=== PATIENT | female | born 1980 | race Caucasian/White ===

== ENCOUNTER 2024-01-08 09:02 | Emergency (ER) | payer SELFPAY ==
[2024-01-08 09:07] VITALS: BP 139/96; PULSE 92; O2SAT 100
[2024-01-08 09:17] VITALS: BP 139/96; PULSE 91; RESP 16; TEMP 36.6; O2SAT 100; BMI 29.9
[2024-01-08] MEDS: AMOXICILLIN/CLAVULANATE POTASSIUM 875/125MG TABLET 1 EACH PO (09:50)
[2024-01-08] MEDS: IBUPROFEN 400 MG TABLET 800 MG PO (09:50)
[2024-01-08 09:54] VITALS: BP 120/87; PULSE 90; RESP 18; TEMP 36.6
--- NOTE | 2024-01-08 11:22 | ED_ITS ---
Discharge Plan Disposition Patient Disposition: Home, Self-Care Condition: Good Prescriptions Prescriptions: New amoxicillin-pot clavulanate 875-125 mg tablet 1 tab PO BID Qty: 20 0RF ibuprofen 800 mg tablet 800 mg PO Q8H PRN (Reason: pain) Qty: 20 0RF Referrals Follow up/Referrals: Jes Corbett APRN [Primary Care Provider] - See instructions Activity Restrictions/Add. Instructions Additional Instructions/Restrictions: You were evaluated in the emergency department today. At this time, it is important that you see a dentist right away. We are prescribing you Augmentin as well as naproxen to take at home. Please complete the full course of antibiotic as prescribed. Return to the emergency department for new or worsening symptoms, such as significant worsening in pain and swelling, difficulty swallowing, difficulty breathing, or fevers. Clinical Impressions Clinical Impression: Dental abscess Stand Alone Forms Stand Alone Forms: Work/School Release Instructions Patient Instructions: DI for Tooth Decay, DI for Dental Pain Discharge ED Provider: Barbra Rosario General Adult HPI General Chief complaint: Dental/Oral Stated complaint: tooth pain Time Seen by Provider: 01/08/24 09:11 Mode of Arrival: Ambulatory Source of Information: Patient Limitations: No Limitations Description of Symptoms (Recalled from ER Triage Doc. by RN): pt states she broke off an upper L tooth a few months ago. yesterday she developed pain in said tooth. pt woke up this am with the L side of her face edematous from under her L eye down to her jaw. pt took tylenol around 0630. pt states her pain is throbbing in nature and a 4/10. pt states she is not worried about the pain, she just needs an antibiotic. pts other teeth appear decayed and she is missing many teeth. History of Present Illness HPI narrative: This patient is a 43-year-old female with a history of poor dentition presenting to the emergency department for evaluation with concern for dental pain and facial swelling. Patient reports that she broke off an upper right tooth a few months ago and has been in close follow-up with a dentist but was waiting for time off work to get dressed. She states that this morning, she woke up with right-sided facial swelling. She has had no visual disturbance, trismus, drooling, dysphagia, stridor, shortness of breath, or other concerns. She is also had no fevers, chills, chest pain, abdominal pain, nausea, vomiting, or other concerns. She states she only came in because she did not have antibiotics at home. Related Data Previous Rx's Medication Instructions Recorded amoxicillin 875 mg-potassium 1 tab PO BID #20 tabs 01/08/24 clavulanate 125 mg tablet ibuprofen 800 mg tablet 800 mg PO Q8H PRN pain #20 tabs 01/08/24 Allergies Allergy/AdvReac Type Severity Reaction Status Date / Time ethyl alcohol AdvReac Mild Rash Verified 01/08/24 09:25 [facility] Disclaimer: The information contained in this section may have been updated after the patient was seen, as this information can be updated by other users. Social History Smoking Status: Current every day smoker alcohol intake: never current occupational status: employed Travel in the last 8 weeks: None ROS Obtained: Yes All systems reviewed & no additional complaints except as documented Physical Exam General General appearance: alert and in no apparent distress Head Head exam: atraumatic and other (Right-sided facial swelling) Eye Eye exam: Present normal appearance, PERRL and EOMI ENT ENT exam: Present mucous membranes moist, normal external ear exam and other (Dental caries and dental fractures with no obvious intraoral abscess. Patient does have right-sided facial swelling. No trismus or drooling.) Neck Neck exam: Present normal inspection, full ROM and trachea midline; Absent tenderness Chest Chest inspection: Present normal inspection and symmetric chest wall rise; Absent tenderness Respiratory Respiratory exam: Present normal lung sounds bilaterally; Absent respiratory distress, wheezes, stridor or accessory muscle use Cardiovascular Cardiovascular exam: Present regular rate and normal rhythm Abdominal Exam Abdominal exam: Present soft; Absent distention, tenderness or guarding Extremities Exam Extremities exam: Present normal inspection, full ROM and normal capillary refill; Absent tenderness or edema Back Exam Back exam: Present normal inspection and full ROM; Absent tenderness Neurological Exam Neurological exam: Present alert, oriented X3, CN II-XII intact and normal gait; Absent motor sensory deficit Psychiatric Psychiatric exam: Present normal affect and normal mood Skin Skin exam: Present warm and dry Medical Decision Making Medical Records Medical records reviewed: Yes I reviewed the patient's medical records. David Inquiry Pt receiving controlled substance: No Vital Signs: 01/08/24 09:07 01/08/24 09:17 01/08/24 09:54 Temperature 98 F 98 F Temperature Source Oral Pulse Rate 92 H 90 Pulse Rate [Left] 91 H Respiratory Rate 16 18 Blood Pressure 139/96 H 120/87 Blood Pressure [Right Arm] 139/96 H Blood Pressure Mean [Right Arm] 110 Blood Pressure Source [Right Arm] Automatic Cuff Blood Pressure Position [Right Arm] Sitting 02 Sat by Pulse Oximetry 100 100 Oxygen Delivery Method Room Air Lab Data Lab results reviewed: Yes I reviewed the patient's lab results. Orders (Tests/Meds): ED MEDICATIONS Discontinued Medications Generic Name Dose Route Start Last Admin Trade Name Freq PRN Reason Stop Dose Admin Amoxicillin/Clavulanate Potassium 1 each 01/08/24 09:47 01/08/24 09:50 Amoxicillin/Clavulanate Potassium 875/125mg Tablet PO 01/08/24 09:48 1 each ONCE ONE Administration Ibuprofen 800 mg 01/08/24 09:47 01/08/24 09:50 Ibuprofen 400 Mg Tablet PO 01/08/24 09:48 800 mg ONCE ONE Administration Medical Decision Narrative: In summary, this patient is a 43-year-old female presenting to the Emergency Department for evaluation of facial swelling and dental pain. Differential diagnoses considered include but are not limited to dental abscess, facial abscess, cellulitis. Ruling out the most morbid conditions drove assessment. On exam, the patient is well-appearing. She is resting comfortably in no acute distress with no trismus, drooling, stridor, or other systemic symptoms. Vitals are normal on cardiac telemetry. I told the patient that I would advise obtaining CT scan of her face to rule out deep abscess/deep space infection. She declined after shared decision-making and stated that she is only here for antibiotic and will follow-up closely with her dentist. She does not feel it is necessary at this time. She was given prescription for Augmentin as well as ibuprofen for pain. She was given instructions to complete the full course of antibiotics and follow-up with a dentist right away. She was given strict retu rn precautions. Patient was discharged in stable condition after all questions were answered. Critical Care Critical Care Time Critical Care Time: No
== END 2024-01-08 09:55 | disposition home or self-care (01) ==
PROVIDERS: Emergency Provider Emergency Medicine; PCP Nurse Practitioner
DX: K04.7 Periapical abscess without sinus (principal); R22.0 Localized swelling, mass and lump, head; F17.210 Nicotine dependence, cigarettes, uncomplicated
CPT/HCPCS: 99283

== ENCOUNTER 2024-10-10 19:39 | Emergency (ER) | payer MEDICAID, SELFPAY ==
[2024-10-10 19:46] VITALS: BP 184/111; PULSE 98; RESP 18; TEMP 36.8; O2SAT 98; BMI 31.4
--- NOTE | 2024-10-10 19:47 | HMH.EDGENADL ---
Discharge Plan Disposition Patient Disposition: Home, Self-Care Condition: Good Prescriptions Prescriptions: No Action amoxicillin-pot clavulanate 875-125 mg tablet 1 tab PO BID Qty: 20 0RF ibuprofen 800 mg tablet 800 mg PO Q8H PRN (Reason: pain) Qty: 20 0RF Referrals Follow up/Referrals: Michelle Corbett PA [Primary Care Provider] - See instructions Nayana Martinez DPM [Staff Physician] - See instructions Activity Restrictions/Add. Instructions Additional Instructions/Restrictions: Recommend Tylenol alternating with Motrin along with rest ice compression elevation. I have referred you to the foot and ankle doctor. You may do weightbearing as tolerated in your Ortho boot until you have your appointment. Please call in the morning to make. If you have any continued new or worsening signs or symptoms follow-up with your PCP or return to the ER as needed. Clinical Impressions Clinical Impression: Right ankle sprain Qualifiers: Encounter type: initial encounter Involved ligament of ankle: unspecified ligament Qualified Code(s): S93.401A - Sprain of unspecified ligament of right ankle, initial encounter Print Language Print Language: Korean Discharge ED Provider: Esvin Stephens General Adult HPI <JENA Darling - Last Filed: 10/10/24 20:59> General Chief complaint: Extremity Injury, Lower Stated complaint: A/O fell and twisted right ankle and leg Time Seen by Provider: 10/10/24 19:41 History of Present Illness HPI narrative: Patient presents for right ankle injury. Patient was walking out of her house and her shoelace got caught on a stick causing her to roll her ankle. She did not fall but she felt a pop and pain. She denies any loss of motor or sensory or any other injury. Related Data Previous Rx's ?Medication ?Instructions ?Recorded amoxicillin 875 mg-potassium 1 tab PO BID #20 tabs 01/08/24 clavulanate 125 mg tablet ibuprofen 800 mg tablet 800 mg PO Q8H PRN pain #20 tabs 01/08/24 Allergies Allergy/AdvReac Type Severity Reaction Status Date / Time ethyl alcohol AdvReac Mild Rash Verified 01/08/24 09:25 PF[facility] <JENA Darling - Last Filed: 10/10/24 20:59> PFS Disclaimer: The information contained in this section may have been updated after the patient was seen, as this information can be updated by other users. Social History (Updated 01/08/24 @ 11:25 by Barbra Rosario DO) Smoking Status: Never smoker alcohol intake: never current occupational status: employed Travel in the last 8 weeks: None Have you lived/traveled outside [place] in past 30 days?: No Contact w/someone who lives/traveled outside [place] past 30 days?: No Exposure to someone with infectious disease in past 14 days?: No Do you have a fever (greater than 100.4 F or 38 C)?: No Have you tested positive for COVID-19: No Exposed to someone with COVID-19 in past 14 days?: No Do you have a sore throat?: No Do you have a cough?: No Do you have any weakness?: No Do you have any diarrhea?: No Are you experiencing any unusual bleeding?: No Do you have any muscle aches/pain?: No Do you have any abdominal pain?: No Are you experiencing loss of taste or smell?: No <JENA Dalring - Last Filed: 10/10/24 20:59> ROS Obtained: Yes Systems reviewed as appropriate & no additional complaints except as documented Physical Exam <JENA Darling - Last Filed: 10/10/24 20:59> General General appearance: alert and in no apparent distress Respiratory Respiratory exam: Present normal lung sounds bilaterally Cardiovascular Cardiovascular exam: Present regular rate Neurological Exam Neurological exam: Present alert and oriented X3 Medical Decision Making <JENA Darling - Last Filed: 10/10/24 20:59> Medical Records Screening: Per USPSTF and CDC recommendations, given the prevalence of disease in our region, it is our hospital?s policy to screen for HIV and viral Hepatitis for all patients aged 18 and over and those with ongoing risk factors. David Inquiry Pt receiving controlled substance: No Vital Signs: 10/10/24 19:46 10/10/24 20:44 Temperature 98.3 F 97.9 F Temperature Source Oral Oral Pulse Rate 81 Pulse Rate [Right] 98 H Respiratory Rate 18 18 Blood Pressure 132/78 Blood Pressure [Right Arm] 184/111 H Blood Pressure Mean [Right Arm] 135 Blood Pressure Source Automatic Cuff Blood Pressure Source [Right Arm] Automatic Cuff Blood Pressure Position Sitting Blood Pressure Position [Right Arm] Sitting 02 Sat by Pulse Oximetry 98 Oxygen Delivery Method Room Air Room Air Orders (Tests/Meds): ED MEDICATIONS Discontinued Medications Generic Name Dose Route Start Last Admin Trade Name Alissa PRN Reason Stop Dose Admin Acetaminophen 1,000 mg 10/10/24 19:54 10/10/24 20:09 Acetaminophen 500mg Tab PO 10/10/24 19:55 1,000 mg ONCE ONE Administration Ibuprofen 800 mg 10/10/24 19:54 10/10/24 20:09 Ibuprofen 400 Mg Tablet PO 10/10/24 19:55 800 mg ONCE ONE Administration ORDERS Category Date Time Status Ankle XR -Right minimum 3 Views [XR ankle RT min 3V] Exams 10/10/24 19:54 Completed Stat Medical Decision Narrative: In summary patient is a 44-year-old female who presents to the emergency department for evaluation of right ankle injury. Patient is hemodynamically stable upon arrival, afebrile. Zickel exam is remarkable for swelling at the lateral malleolus and ecchymosis however no palpable bony deformity. Patient is neurovascular intact distally. Patient has positive pulses has good flexion extension.. Differential diagnosis includes ankle sprain versus fracture. Initial workup will be conducted with plain film x-rays. Initial interventions include Tylenol and ibuprofen. Initial workup reviewed by me my informal interpretation shows no acute fracture prior to radiology read. Please see final read for formal report. Upon repeat evaluation patient has difficulty bearing weight despite initial intervention. Given this I offered the patient crutches Dany wrap or an Ortho boot and she is elected via patient directed decision making and Ortho boot and follow-up with podiatry. Thus patient is appropriate for discharge with rest ice compression elevation instructions along with recommendations continue taking Tylenol Motrin and referral to podiatry. <Esvin Stephens MD - Last Filed: 10/10/24 21:09> Vital Signs: 10/10/24 19:46 10/10/24 20:44 Temperature 98.3 F 97.9 F Temperature Source Oral Oral Pulse Rate 81 Pulse Rate [Right] 98 H Respiratory Rate 18 18 Blood Pressure 132/78 Blood Pressure [Right Arm] 184/111 H Blood Pressure Mean [Right Arm] 135 Blood Pressure Source Automatic Cuff Blood Pressure Source [Right Arm] Automatic Cuff Blood Pressure Position Sitting Blood Pressure Position [Right Arm] Sitting 02 Sat by Pulse Oximetry 98 Oxygen Delivery Method Room Air Room Air Orders (Tests/Meds): ED MEDICATIONS Discontinued Medications Generic Name Dose Route Start Last Admin Trade Name Alissa PRN Reason Stop Dose Admin Acetaminophen 1,000 mg 10/10/24 19:54 10/10/24 20:09 Acetaminophen 500mg Tab PO 10/10/24 19:55 1,000 mg ONCE ONE Administration Ibuprofen 800 mg 10/10/24 19:54 10/10/24 20:09 Ibuprofen 400 Mg Tablet PO 10/10/24 19:55 800 mg ONCE ONE Administration ORDERS Category Date Time Status Ankle XR -Right minimum 3 Views [XR ankle RT min 3V] Exams 10/10/24 19:54 Completed Stat Medical Decision Narrative: In summary patient is a 44-year-old female who presents to the emergency department for evaluation of right ankle injury. Patient is hemodynamically stable upon arrival, afebrile. Zickel exam is remarkable for swelling at the lateral malleolus and ecchymosis however no palpable bony deformity. Patient is neurovascular intact distally. Patient has positive pulses has good flexion extension.. Differential diagnosis includes ankle sprain versus fracture. Initial workup will be conducted with plain film x-rays. Initial interventions include Tylenol and ibuprofen. Initial workup reviewed by me my informal interpretation shows no acute fracture prior to radiology read. Please see final read for formal report. Upon repeat evaluation patient has difficulty bearing weight despite initial intervention. Given this I offered the patient crutches Dany wrap or an Ortho boot and she is elected via patient directed decision making and Ortho boot and follow-up with podiatry. Thus patient is appropriate for discharge with rest ice compression elevation instructions along with recommendations continue taking Tylenol Motrin and referral to podiatry. LUCY attestation I was consulted by the LUCY, and we discussed the complexity of problems being addressed. I approved the treatment and management plan for this patient's care in the emergency department, thus performing a substantial portion of the medical decision making. Examined the patient at bedside and independently interpreted her x-ray imaging revealing of no acute osseous pathology. Consistent with ankle sprain. Ambulatory and appropriate for discharge at this time. Esvin Stephens MD Critical Care <JENA Darling - Last Filed: 10/10/24 20:59> Critical Care Time Critical Care Time: No
--- NOTE | 2024-10-10 19:54 | XR_ITS ---
PROCEDURE INFORMATION: Exam: XR Right Ankle Exam date and time: 10/10/2024 7:57 PM Age: 44 years old Clinical indication: Pain; Ankle; Right; Additional info: Rolled right ankle TECHNIQUE: Imaging protocol: Radiologic exam of the right ankle. Views: 3 or more views. COMPARISON: No relevant prior studies available. FINDINGS: Bones/joints: Normal. Soft tissues: Normal. IMPRESSION: No acute findings.
[2024-10-10] MEDS: ACETAMINOPHEN 500MG TAB 1000 MG PO (20:09)
[2024-10-10] MEDS: IBUPROFEN 400 MG TABLET 800 MG PO (20:09)
[2024-10-10 20:44] VITALS: BP 132/78; PULSE 81; RESP 18; TEMP 36.6; O2SAT 100
== END 2024-10-10 20:46 | disposition home or self-care (01) ==
PROVIDERS: Emergency Provider Student in an Organized Health Care Education/Training Program; PCP Physician Assistant
DX: S93.401A Sprain of unspecified ligament of right ankle, initial encounter (principal); X50.1XXA Overexertion from prolonged static or awkward postures, initial encounter
CPT/HCPCS: 73610; 99283